=== PATIENT | male | born 1995 | race Caucasian/White ===

== ENCOUNTER → 2020-12-28 | Emergency (ER) | payer OTHER ==
[~2020-12-28] MED LIST: NORFLEX 100 MG100 MG PO; TORADOL 10 MG T10 MG PO
== END | disposition home or self-care (01) ==
LOC: ER1 22:52
DX: G89.29 Other chronic pain (principal); M54.50 Low back pain, unspecified; F17.210 Nicotine dependence, cigarettes, uncomplicated; Z88.1 Allergy status to other antibiotic agents; Z87.39 Personal history of other diseases of the musculoskeletal system and connective tissue
CPT/HCPCS: 96372; 99283; J1885

== ENCOUNTER 2021-01-02 18:39 | Emergency (ER) | payer OTHER ==
[2021-01-02 23:05] LABS: HEMOGLOBIN 12.3 gm/dl (14.0-17.5); RED BLOOD COUNT 4.2 M/UL (4.20-5.50); WHITE BLOOD COUNT 3.5 K/UL (4.5-11.0)
[2021-01-02 23:20] LABS: BUN/CREATININE RATIO 16 (0-10)
== END 2021-01-03 00:36 | disposition home or self-care (01) ==
LOC: ER1 18:39
PROVIDERS: Physician Assistant
DX: M54.50 Low back pain, unspecified (principal); G89.29 Other chronic pain; F17.210 Nicotine dependence, cigarettes, uncomplicated; Z88.1 Allergy status to other antibiotic agents; Z79.899 Other long term (current) drug therapy
CPT/HCPCS: 72125; 72128; 72131; 73522; 80053; 85025; 85652; 86140; 96372; 99284; J1170; J1642; J2550